=== PATIENT | female | born 1980 | race Two or more races ===

== ENCOUNTER 2017-10-12 07:32 | Day surgery (SDC) | payer OTHER ==
[~2017-10-12] VITALS: Ht 152.4 cm; Wt 64.4 kg
[2017-10-12] VITALS (9 sets, daily range): BP systolic 104–119; BP diastolic 63–79
[~2017-10-12 07:32] MED LIST: NKM
[2017-10-12] MEDS ORDERED: LR 1000ml ONE (08:00)
[2017-10-12] MEDS ORDERED: Propofol 200mg/20ml IV ONE (08:00)
[2017-10-12] MEDS ORDERED: Lidocaine 1% MPF 10mg/ml 5ml ONE (08:00)
--- NOTE | 2017-10-12 08:27 | Short Stay Surgery H&P ---
History of Present Illness History of Present Illness Chief Complaint Abdominal pains/GERDs. HPI Mary Patterson is a 37 year old female who was admitted on for Gerds,,Abdominal Pain,Constipation Patient History Allergies: Coded Allergies: CIPROFLOXACIN (Verified Allergy, Severe, 10/11/17) SHORTNES OF BREATHE AND NUMBNESS TO LEFT AM Past Surgeries: (1) History of appendectomy (2) H/O tubal ligation Medication History Scheduled No Known Medications* (NKM - No Known Medications*), 0 ., (Reported) Review of Systems Cardiovascular: Reports: no symptoms Respiratory: Reports: no symptoms Skeletal: Reports: trauma Gastrointestinal: Reports: gastro esophageal reflux disease Genitourinary: Reports: no symptoms Neurologic: Reports: no symptoms Endocrine: Reports: no symptoms Hematologic: Reports: no symptoms Physical Exam Vital Signs Last Vital Signs Date Time Temp Pulse Resp B/P (MAP) Pulse Ox O2 Delivery O2 Flow Rate FiO2 10/12/17 07:56 97.3 74 18 116/63 100 Room Air 97.3 Skin: normal HENT: normal Heart: normal Lungs: normal Abdomen: abnormal Extremities: normal Genitourinary: normal Plan Plan of Care Upper and lower GI endoscopies Preop Interventions None. Summary of Findings See the reports Attestation Are the patient's medical conditions optimized for surgery? Attestation Response: yes MAYKEL LANE Oct 12, 2017 08:27
--- NOTE | 2017-10-12 08:28 | Pre-Procedure Note/Attestation ---
Pre-Procedure Note/Attestation Complete Prior to Procedure Planned Procedure: left Procedure Narrative: Endoscopic exam of the upper and the lower GI tract Indications for Procedure Pre-Operative Diagnosis: R/O Gastritis/colitis/peptic ulcer Attestation I attest that I discussed the nature of the procedure; its benefits; risks and complications; and alternatives (and the risks and benefits of such alternatives ), prior to the procedure, with the patient (or the patient's legal b2b outside sales representative). I attest that, if there was a reasonable possibility of needing a blood transfusion, the patient (or the patient's legal b2b outside sales representative) was given the [facility] standardized written summary, pursuant to the Jordan Marla Blood Safety Act ([place] Health and Safety Code # 1645, as amended). I attest that I re-evaluated the patient just prior to the surgery and that there has been no change in the patient's H&P, except as documented below: DOMINGOSAID Oct 12, 2017 08:28
[2017-10-12] MEDS ORDERED: Midazolam 2mg/2ml Inj IVP PRN (08:30)
[2017-10-12] MEDS ORDERED: fentaNYL 100 mcg/2 mL IV PRN (08:30)
[2017-10-12] MEDS ORDERED: DiphenhydrAMINE 50mg/ml Inj IVP PRN (08:30)
[2017-10-12] MEDS ORDERED: Atropine Inj 1mg/10ml Syr IV PRN (08:30)
--- NOTE | 2017-10-12 08:33 | Anethesia Preoperative Eval ---
Anesthesia Pre-op PMH/ROS General Date of Evaluation: Oct 12, 2017 Time of Evaluation: 08:24 Anesthesiologist: meng ASA Score: ASA 2 Mallampati Score Class I : Soft palate, uvula, fauces, pillars visible Class II: Soft palate, uvula, fauces visible Class III: Soft palate, base of uvula visible Class IV: Only hard plate visible Mallampati Classification: Class II Surgeon: jevon Diagnosis: gerd Surgical Procedure: egd/colonoscopy Anesthesia History: none Family History: no anesthesia problems Allergies: Coded Allergies: CIPROFLOXACIN (Verified Allergy, Severe, 10/11/17) SHORTNES OF BREATHE AND NUMBNESS TO LEFT AM Medications: see eMAR Past Medical History Gastrointestinal/Genitourinary: Reports: GERD, other - on menses Anesthesia Pre-op Phys. Exam Physician Exam Last Vital Signs Date Time Temp Pulse Resp B/P (MAP) Pulse Ox O2 Delivery O2 Flow Rate FiO2 10/12/17 07:56 97.3 74 18 116/63 100 Room Air 97.3 Constitutional: NAD Neurologic: CN 2-12 intact Cardiovascular: RRR Respiratory: CTA Gastrointestinal: S/NT/ND Airway Exam Mallampati Score: Class II MO: full Neck: supple TMD: 2fb ROM: full Teeth: intact Anesthesia Pre-op A/P Risk Assessment & Plan Assessment: asa2 Plan: mac Status Change Before Surgery: No Pre-Antibiotics Drug: KARLA Sanford Oct 12, 2017 08:33
--- NOTE | 2017-10-12 09:00 | Endoscopy Procedure Note ---
Endoscopy Procedure Note General Indication for Procedure: Abdominal pains/GERDs Procedures Performed: EGD - Evidence of bile in the stomach otherwise completely normal UGI endoscopy, biopsy was done per random from gastric body., colonoscopy - Grade I-II internal hemorrhoids, otherwise completely normal total colonoscopy. Specimen: yes Pt Tolerated Procedure Well: Yes Estimated Blood Loss: none Anesthesia Anesthesiologist: Dr. Paul Anesthesia: moderate sedation Inserted Devices Implant(s) used?: No Quality Quality of Bowel Preparation: Fair Did scope reach the cecum?: Yes Was there any complications?: No GI Core Measures 50 yrs or older w/o bx or poly: No 10yrs. F/U not recommended: Yes Med reason:<3 yrs.: System Reason:<3 yrs[address] Oct 12, 2017 09:00
--- NOTE | 2017-10-12 09:01 | Discharge Instructions ---
Discharge Instructions Discharge Instructions Follow up with: jerod will alk with family For Congestive Heart Failure Reminder Report to your physician any weight gain of 5 pounds or more in one week. MAYKEL LANE Oct 12, 2017 09:01
--- NOTE | 2017-10-12 09:18 | Immediate Post-Op Evaluation ---
Immediate Post-Op Evalulation Immediate Post-Op Evalulation Procedure: egd/colonoscopy Date of Evaluation: Oct 12, 2017 Time of Evaluation: 09:17 IV Fluids: 250ml Blood Products: none Estimated Blood Loss: negligible Blood Pressure Systolic: 111 Blood Pressure Diastolic: 78 Pulse Rate: 91 Respiratory Rate: 18 O2 Sat by Pulse Oximetry: 99 Temperature (Fahrenheit): 97.1 Pain Score (1-10): 0 Nausea: No Vomiting: No Complications none Patient Status: awake, reacts, patent Hydration Status: adequate Drug: KARLA Sanford Oct 12, 2017 09:18
--- NOTE | 2017-10-12 09:20 | 48 Hour Post Anesthesia Eval ---
Post Anesthesia Evaluation Procedure: egd/colonoscopy Date of Evaluation: Oct 12, 2017 Time of Evaluation: 09:19 Blood Pressure Systolic: 113 0: 78 Pulse Rate: 78 Respiratory Rate: 18 Temperature (Fahrenheit): 97.1 O2 Sat by Pulse Oximetry: 99 Airway: patent Nausea: No Vomiting: No Pain Intensity: 0 Hydration Status: adequate Cardiopulmonary Status: stable Mental Status/LOC: patient returned to baseline Post-Anesthesia Complications: none Follow-up care needed: N/A KARLA ZARATE Oct 12, 2017 09:20
--- NOTE | 2017-10-12 17:15 | Pre-op HX & Phy Repo 2 SIG ---
DATE OF ADMISSION: 10/12/2017 PREOPERATIVE HISTORY AND PHYSICAL HISTORY OF PRESENT ILLNESS: The applicant is a 37-year-old female, who is being seen prior to undergoing the procedure of upper and lower GI endoscopy, for which she has been scheduled to receive for evaluation of her gastrointestinal condition that has been reported to be related to the work accident . 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 She reported that she started to have symptoms of epigastric pain and excessive pressure and heartburn while she was working with this function at the [employer] [facility] [employer]. She also reported that she did have significant amount of heartburn and pains that was noticed over the upper part of the abdomen as well as lower part as well. As I mentioned, she suffered from significant anxiety due to the kind of work and dealing with coworkers as well. The applicant reports that abdominal pain aggravated occasionally by consumption of food. As I mentioned, she does have significant amount of heartburn consistent with gastroesophageal acid reflux. In the past, she was prescribed PPIs such as omeprazole by primary physician. There has been no history of hematemesis, melena, hematochezia. She however complains of bloating in the abdomen. She has not been taking any nonsteroidal anti-inflammatory agents either. She has not had any major constipation or diarrhea. PAST MEDICAL HISTORY: Basically unremarkable. She denies having hypertension, hyperlipidemia, diabetes, thyroid condition, etc. PAST SURGICAL HISTORY: None. ALLERGIES: None. MEDICATIONS: At this time, none. FAMILY HISTORY: Not significant. REVIEW OF SYSTEMS: Basically history of present illness. The patient has suffered significant amount of anxiety and stress. She has been seen by psychiatrist in the past as well. There was no significant complaint except abdominal pain, anxiety, and stress. PHYSICAL EXAMINATION: GENERAL: Alert and well-oriented female, who does not seem to be in acute distress. She looks well developed and nourished, overweight. HEENT: Normocephalic. Pupils equal in size, reactive to light and accommodation. No visible jaundice. Buccal cavity, tongue midline, well hydrated. NECK: Supple. No JVD, thyromegaly, or adenopathy. CHEST: Clear to auscultation and percussion. No rales or rhonchi. HEART: S1 and S2 normal. Regular rhythm. No gallops or murmur. ABDOMEN: Soft, but obese. There are areas of tenderness allover the abdomen, but no palpable mass noted. EXTREMITIES: Unremarkable. No pretibial edema, cyanosis, or clubbing. CENTRAL NERVOUS SYSTEM: Grossly normal. PRELIMINARY PREOPERATIVE IMPRESSION: 1. Abdominal pain consistent with possible gastroesophageal reflux, aggravated by anxiety and stress. 2. Generalized abdominal pain, mostly secondary to irritable bowel syndrome related to the exposure to significant anxiety and stress. 3. Anxiety and depression. 4. History of possible fatty liver (NAFLD). RECOMMENDATION: The applicant seems to be stable at this time to undergo the procedure of upper and lower GI endoscopy for which she has been scheduled. She understands the risks and benefits and will sign the consent. Said Kamla Hernandez DR: ELIJAH JOB#: [id number] CC:
--- NOTE | 2017-10-12 17:45 | Procedure Note ---
DATE OF PROCEDURE: 10/12/2017 SURGEON: Cam Hernandez M.D. PROCEDURE: Total colonoscopy. PREOPERATIVE DIAGNOSIS: Abdominal pain. POSTOPERATIVE DIAGNOSIS: Grade 1/2 internal hemorrhoid, otherwise completely normal study of total colonoscopy. MEDICATION USED: Per Dr. Paul, anesthesiologist. INSTRUMENT: GIF Olympus video colonoscope. DESCRIPTION OF PROCEDURE: The patient after arriving in endoscopy unit, was told about risks and benefits of the procedure, which she accepted and signed informed consent. At this time, she was put on the left lateral decubitus position. After adequate IV sedation, the scope was gently passed through the anal area, which revealed evidence of external hemorrhoidal tag. A retroflexion maneuver, which was applied inside the rectum, revealed evidence of also hemorrhoids, which are thought to be consistent with grade 1/2, but there were not friable. At this time, the scope was advanced into the rest of the rectum, which revealed completely normal and gradually introduced into rectosigmoid area, advanced into descending colon, splenic flexure, transverse colon, and finally guided into the right hepatic flexure and all the way down to the base of the cecum. All these areas remained to be completely normal without any evidence of inflammatory process, ulceration, polyps, tumors, etc. The colon cleanup was fair as there was some formed pieces of stool along the colon. At this point, upon reaching to the cecum within 8 minutes, the scope was gradually pulled out and re-evaluation of the colon did not reveal any abnormalities as mentioned earlier. The patient tolerated the procedure well and left the endoscopy room in good condition. Cam Hernandez M.D. DR: ABDIEL JOB#: [id number] CC:
--- NOTE | 2017-10-12 17:45 | Operative Note - Dictated ---
DATE OF OPERATION: 10/12/2017 SURGEON: Cam Hernandez M.D. PROCEDURE: Esophagogastroduodenoscopy with biopsy. PREOPERATIVE DIAGNOSES: 1. Abdominal pain. 2. History of acid reflux. POSTOPERATIVE DIAGNOSIS: Evidence of bile in the stomach, otherwise, complete normal upper gastrointestinal endoscopy. Biopsy was taken per random from gastric body. MEDICATION USED: Per Dr. Paul, anesthesiologist. INSTRUMENT: GIF Olympus upper GI video endoscope. DESCRIPTION OF PROCEDURE: The patient, after arriving endoscopy unit, was told about risks and benefits of the procedure, which she accepted and signed informed consent. She was then put on the left lateral decubitus position. After adequate IV sedation, the scope was gently passed through the cricopharyngeal area, was lodged in the upper esophagus, and advanced towards gastroesophageal junction. The entire length of the esophagus looked normal and there was no any evidence of ulceration, stricture, abnormality noted. The GE junction also looked normal without any evidence of Cooley's or hiatal hernia. The scope was then guided into the stomach. Gastric cavity was distended and immediately revealed evidence of mild to moderate amount of bile collected in the body and the fundus of the stomach, which was suctioned. Underlying mucosa, however, looked completely normal and at this point, gradually the areas of the fundus and the body and the antrum were examined that revealed no abnormalities such as ulcers, tumors, polyps, etc. Subsequently, the scope was passed through the normal looking pylorus. First and second portions of duodenum were also seem to be completely normal. At this point, the scope was pulled back into the stomach. A retroflexion maneuver was applied. The area of the gastroesophageal junction was examined in a closer fashion, with finding no abnormalities. At this time, one random biopsy from gastric body obtained and scope was pulled out. The procedure was terminated. The patient tolerated the procedure well. Cam Hernandez M.D. DR: NASIM JOB#: [id number] CC:
== END 2017-10-12 10:20 | disposition home or self-care (01) ==
LOC: GAS 07:32
DX: K64.8 Other hemorrhoids (principal); F41.9 Anxiety disorder, unspecified; F32.9 Major depressive disorder, single episode, unspecified; K21.9 Gastro-esophageal reflux disease without esophagitis; Z98.51 Tubal ligation status; Z90.89 Acquired absence of other organs; Z88.8 Allergy status to other drugs, medicaments and biological substances
CPT/HCPCS: 43239; 45378; J2704; J7120; 94003; 94150